=== PATIENT | male | born 1975 | race Two or more races ===

== ENCOUNTER 2017-01-02 11:01 | Emergency (ER) | payer OTHER ==
[~2017-01-02] VITALS: Ht 175.3 cm; Wt 74.8 kg
[2017-01-02] MEDS ORDERED: IBUPROFEN600 MG ORAL (12:10)
[2017-01-02 12:13] VITALS: BP 120/81
--- NOTE | 2017-01-02 12:36 | Diagnostic Imaging Report ---
Indication: left ankle pain Comparison: None Findings: 3 views of the left ankle obtained. No acute fracture, malalignment, periostitis, or osteochondral defects are identified. Soft tissues are unremarkable. Impression: No acute findings
--- NOTE | 2017-01-02 12:36 | Diagnostic Imaging Report ---
Indication: pain Findings: 3 views of the left hand were obtained. Normal alignment is demonstrated. No acute fractures, erosions, or periosteal reaction are seen. Soft tissues are unremarkable. Impression: No acute findings.
--- NOTE | 2017-01-03 06:49 | Emergency Room Report ---
History of Present Illness General Chief Complaint: Lower Extremity Injury Source: Patient Present Illness HPI 41-year-old male since ED complaining of left thumb pain left ankle pain. States that 3 days ago he had trip and fall, rolling his ankle and in the process landing on his outstretched hand. Patient presents with pain to his left ankle and his left thumb. Pain is throbbing, 7/10, nonradiating. Denies any other injuries. No other aggravating or relieving factors. Denies any other associated symptom Allergies: Coded Allergies: No Known Allergies (Unverified , 01/02/17) Patient History Past Medical History: none Past Surgical History: none Pertinent Family History: none Social History: Denies: smoking, alcohol use, drug use Immunizations: UTD Reviewed Nursing Documentation: PMH: Agreed, PSxH: Agreed Nursing Documentation-PMH Past Medical History: No Stated History Review of Systems All Other Systems: negative except mentioned in HPI Physical Exam Vital Signs Date Time Temp Pulse Resp B/P (MAP) Pulse Ox O2 Delivery O2 Flow Rate FiO2 01/02/17 11:07 98.1 67 20 120/81 99 Room Air Sp02 EP Interpretation: reviewed, normal General Appearance: no apparent distress, alert, GCS 15, non-toxic Head: normocephalic Eyes: bilateral eye normal inspection, bilateral eye PERRL ENT: normal ENT inspection Neck: normal inspection Respiratory: normal inspection Cardiovascular #1: normal inspection Gastrointestinal: normal inspection Rectal: deferred Genitourinary: no CVA tenderness Musculoskeletal: tender - L ankle, L thumb Neurologic: alert, oriented x3, responsive, motor strength/tone normal, sensory intact, speech normal Psychiatric: judgement/insight normal, memory normal, mood/affect normal, no suicidal/homicidal ideation Skin: normal inspection Lymphatic: normal inspection Procedures Splinting Splinting : Consent: Verbal Pre-Made Type: JOSE wrap Splint: thumb spica Pre-Proc Neuro Vasc Exam: normal Post-Proc Neuro Vasc Exam: normal Patient Tolerated: Well Complications: None Medical Decision Making Diagnostic Impression: Primary Impression: Ankle sprain Qualified Codes: S93.402A - Sprain of unspecified ligament of left ankle, initial encounter Additional Impression: Thumb fracture Qualified Codes: S62.515A - Nondisplaced fracture of proximal phalanx of left thumb, initial encounter for closed fracture ER Course Hospital Course 41-year-old M presents to ED complaining of L ankle and L thumb pain s/p trip and fall Differential diagnoses include: Fracture, dislocation, sprain, contusion Clinical course Patient placed on stretcher. After initial history and physical, I ordered pain medications and Xrays of L ankle, L hand Left ankle film unremarkable, left hand x-ray shows possible fracture of thumb Patient does have snuffbox tenderness as well. Placed in thumb spica splint. Jose wrap placed on left ankle. Patient defers crutches Diagnosis - ankle sprain, thumb fx Stable and discharged to home with prescription for Motrin. apply ice, keep elevated. weight bear as tolerated. Followup with PMD. Return to ED if symptoms recur or worsen Other X-Ray Diagnostic Results Other X-Ray Diagnostic Results #1: X-Ray ordered: L hand # of Views/Limited Vs Complete: 3 View Indication: Pain EP Interpretation: Yes Interpretation: no dislocation, no soft tissue swelling Impression: Other - fx L thumb Electronically Signed by: Electronically signed by Issac Montes MD Other X-Ray Diagnostic Results #2: X-Ray ordered: Left ankle # of Views/Limited Vs Complete: 3 View Indication: Pain EP Interpretation: Yes Interpretation: no dislocation, no soft tissue swelling, no fractures Impression: No acute disease Electronically Signed by: Electronically signed by Issac Montes MD Last Vital Signs Date Time Temp Pulse Resp B/P (MAP) Pulse Ox O2 Delivery O2 Flow Rate FiO2 01/02/17 12:13 98.1 74 20 120/81 99 Room Air Status: improved Disposition: HOME, SELF-CARE Condition: Stable Scripts Ibuprofen* (MOTRIN*) 600 Mg Tablet 600 MG ORAL Q8H Y for For Pain, #30 TAB 0 Refills Prov: ISSAC MONTES M.D. 01/02/17 Referrals: EDWIN SOLIS Urmen M.D. Patient Instructions: Ankle Sprain, Thumb Fracture ISSAC MONTES M.D. Jan 03, 2017 06:49
== END 2017-01-02 12:13 | disposition home or self-care (01) ==
LOC: EMR 11:25
DX: S93.402A Sprain of unspecified ligament of left ankle, initial encounter (principal); S62.502A Fracture of unspecified phalanx of left thumb, initial encounter for closed fracture; W01.0XXA Fall on same level from slipping, tripping and stumbling without subsequent striking against object, initial encounter; Y92.89 Other specified places as the place of occurrence of the external cause
CPT/HCPCS: 99284

== ENCOUNTER 2017-01-16 14:22 | Emergency (ER) | payer OTHER ==
[~2017-01-16] VITALS: Ht 175.3 cm; Wt 74.8 kg
[~2017-01-16 14:22] MED LIST: IBUPROFEN600 MG ORAL
[2017-01-16] MEDS ORDERED: Mylanta II UD 30ml ORAL ONE (14:45)
--- NOTE | 2017-01-16 14:52 | Emergency Room Report ---
History of Present Illness General Chief Complaint: Abdominal Pain Source: Patient Present Illness HPI 41YOM walk-in with 2 days RUQ abd pain Food makes pain worse, assoc with bloating "gas" pain No nausea/vomiting, fever/chills Had "blood in stool" 2 days ago but that was after drinking "vegetarian juice." Was in [place] for boat trip recently - just drank coffee - not sure if made with clean water Previous appendectomy No other surgery or other med problems Doesnt take NSAIDs Not a heavy drinker Allergies: Coded Allergies: No Known Allergies (Unverified , 01/02/17) Patient History Past Medical History: none Past Surgical History: none Pertinent Family History: none Social History: Denies: smoking, alcohol use, drug use Immunizations: UTD Reviewed Nursing Documentation: PMH: Agreed, PSxH: Agreed Nursing Documentation-PMH Past Medical History: No History, Except For Hx Cardiac Problems: No - Shingles Hx Hypertension: No Hx Pacemaker: No Hx Asthma: No Hx COPD: No Hx Diabetes: No Hx Cancer: No Hx Gastrointestinal Problems: No History Of Psychiatric Problem: No Hx Neurological Problems: No Hx Cerebrovascular Accident: No Hx Seizures: No Review of Systems All Other Systems: negative except mentioned in HPI Physical Exam Vital Signs Date Time Temp Pulse Resp B/P (MAP) Pulse Ox O2 Delivery O2 Flow Rate FiO2 01/16/17 14:35 97.5 56 16 145/75 98 Room Air Sp02 EP Interpretation: reviewed, normal General Appearance: normal inspection, well appearing, no apparent distress, alert Head: normocephalic, atraumatic ENT: normal ENT inspection, hearing grossly normal, normal voice Neck: normal inspection, full range of motion, supple, no bony tend Respiratory: normal inspection, lungs clear, normal breath sounds, no respiratory distress, no retraction, no wheezing Cardiovascular #1: regular rate, rhythm, no edema Gastrointestinal: normal inspection, normal bowel sounds, non tender, soft, no guarding, no hernia Genitourinary: no CVA tenderness Musculoskeletal: normal inspection, back normal, normal range of motion, Jed' s Sign negative Neurologic: normal inspection, alert, responsive, speech normal Psychiatric: normal inspection, judgement/insight normal, mood/affect normal Skin: normal inspection, normal color, no rash Medical Decision Making Diagnostic Impression: Primary Impression: Abdominal pain Qualified Codes: R10.11 - Right upper quadrant pain ER Course Labs: No leuks,. H&h stable. Elevated eosinophils. LFTs, lipase normal. UA normal Improved from GI cocktail Possibly travelers gastritis/illness from travel to [place] Not septic appearing Rx Cipro PMD followup as needed DC home Low suspicion for acute bacterial/surgical process requiring additional lab work , imaging, admission and/or surgical evaluation at this time given well appearing, non-focal abd on serial exam, stable vital signs, and tolerating PO. In shared decision making process with patient, understands to return to ER for worsening symptoms and to followup with PMD in reasonable amount of time, 2-3 days. Last Vital Signs Date Time Temp Pulse Resp B/P (MAP) Pulse Ox O2 Delivery O2 Flow Rate FiO2 01/16/17 14:35 97.5 56 16 145/75 98 Room Air Status: improved Disposition: HOME, SELF-CARE Scripts Ciprofloxacin Hcl* (CIPROFLOXACIN HCL*) 500 Mg Tablet 500 MG ORAL EVERY 12 HOURS for 3 Days, #6 TAB 0 Refills Prov: KM ENGLAND M.D. 01/16/17 KM ENGLAND M.D. Jan 16, 2017 14:52
[2017-01-16 15:41] LABS: BASOPHILS % (AUTO) 1.1 % (0.0-2.0); EOSINOPHILS % (AUTO) 3.4 % (0.0-3.0); MEAN CORPUSCULAR HEMOGLOBIN 34.8 PG (27.0-31.0); MEAN CORPUSCULAR HGB CONC 33.5 G/DL (32.0-36.0); MEAN CORPUSCULAR VOLUME 104 FL (80-99); NEUTROPHILS % (AUTO) 53.5 % (45.0-75.0); PLATELET COUNT 250 K/UL (150-450); RED BLOOD COUNT 4.02 M/UL (4.70-6.10); RED CELL DISTRIBUTION WIDTH 12.6 % (11.6-14.8); WHITE BLOOD COUNT 7.1 K/UL (4.8-10.8)
[2017-01-16 16:08] LABS: ALANINE AMINOTRANSFERASE 15 U/L (12-78); ALBUMIN/GLOBULIN RATIO 1.2 (1.0-2.7); ANION GAP 5 mmol/L (5-15); ASPARTATE AMINO TRANSFERASE 16 U/L (15-37); CALCIUM 9.1 MG/DL (8.5-10.1); CARBON DIOXIDE 29 MMOL/L (21-32); CHLORIDE 108 MMOL/L (98-107); GLOMERULAR FILTRATION RATE > 60 mL/min (>60); LIPASE 113 U/L (73-393); POTASSIUM 4.3 MMOL/L (3.5-5.1); SODIUM 142 MMOL/L (136-145); TOTAL PROTEIN 6.4 G/DL (6.4-8.2)
[2017-01-16] MEDS ORDERED: CIPROFLOXACIN500 M2 ORAL (17:30)
[2017-01-16 17:48] VITALS: BP 118/73
[2017-01-16 17:50] VITALS: BP 118/73
[2017-01-16 17:51] LABS: APPEARANCE,URINE CLEAR; KETONES,URINE NEGATIVE (NEGATIVE); LEUKOCYTE ESTERASE ,URINE NEGATIVE (NEGATIVE); NITRITE,URINE NEGATIVE (NEGATIVE); PH,URINE 5 (4.5-8.0); PROTEIN,URINE NEGATIVE (NEGATIVE); UROBILINOGEN,URINE NORMAL MG/DL (0.0-1.0)
== END 2017-01-16 20:15 | disposition home or self-care (01) ==
LOC: EMR 15:48
DX: R10.11 Right upper quadrant pain (principal)
CPT/HCPCS: 36415; 80053; 81003; 83690; 85025; 96374; 99284; S0028

== ENCOUNTER 2017-03-01 16:41 | Emergency (ER) | payer OTHER ==
[~2017-03-01] VITALS: Ht 172.7 cm; Wt 73.5 kg
[~2017-03-01 16:41] MED LIST changes: +CIPROFLOXACIN500 M2 ORAL
[2017-03-01 16:45] VITALS: BP 137/88
[2017-03-01] MEDS ORDERED: GABAPENTIN300 MG ORAL (16:51)
[2017-03-01 17:56] LABS: BASOPHILS % (AUTO) 0.7 % (0.0-2.0); EOSINOPHILS % (AUTO) 2.5 % (0.0-3.0); LYMPHOCYTES % (AUTO) 27.1 % (20.0-45.0); MEAN CORPUSCULAR HEMOGLOBIN 35.1 PG (27.0-31.0); MEAN CORPUSCULAR HGB CONC 33.9 G/DL (32.0-36.0); MEAN CORPUSCULAR VOLUME 104 FL (80-99); MEAN PLATELET VOLUME 7.1 FL (6.5-10.1); MONOCYTES % (AUTO) 8.7 % (1.0-10.0); NEUTROPHILS % (AUTO) 61.1 % (45.0-75.0); PLATELET COUNT 295 K/UL (150-450); RED BLOOD COUNT 4.43 M/UL (4.70-6.10); RED CELL DISTRIBUTION WIDTH 12.2 % (11.6-14.8); WHITE BLOOD COUNT 8.3 K/UL (4.8-10.8)
[2017-03-01 18:04] LABS: ANION GAP 5 mmol/L (5-15); CALCIUM 8.9 MG/DL (8.5-10.1); CARBON DIOXIDE 30 MMOL/L (21-32); CHLORIDE 105 MMOL/L (98-107); CREATININE 1.1 MG/DL (0.55-1.30); GLOMERULAR FILTRATION RATE > 60 mL/min (>60); POTASSIUM 4.3 MMOL/L (3.5-5.1); SODIUM 140 MMOL/L (136-145)
[2017-03-01 18:06] LABS: PROTHROMBIN TIME 10.3 SEC (9.30-11.50)
[2017-03-01 18:08] LABS: ALANINE AMINOTRANSFERASE 15 U/L (12-78); ALBUMIN/GLOBULIN RATIO 1.1 (1.0-2.7); ASPARTATE AMINO TRANSFERASE 17 U/L (15-37); LIPASE 144 U/L (73-393); TOTAL PROTEIN 7.2 G/DL (6.4-8.2)
[2017-03-01] MEDS ORDERED: TRAMADOL HCL50 MG ORAL (18:56)
[2017-03-01] MEDS ORDERED: OMEPRAZOLE20 M2 ORAL (18:56)
[2017-03-01 19:05] VITALS: BP 133/76
[2017-03-01 19:06] LABS: APPEARANCE,URINE CLEAR; KETONES,URINE NEGATIVE (NEGATIVE); LEUKOCYTE ESTERASE ,URINE 2+ (NEGATIVE); NITRITE,URINE NEGATIVE (NEGATIVE); PH,URINE 5 (4.5-8.0); PROTEIN,URINE NEGATIVE (NEGATIVE); UROBILINOGEN,URINE NORMAL MG/DL (0.0-1.0)
[2017-03-01 19:14] VITALS: BP 133/76
[2017-03-01 19:20] LABS: BACTERIA,URINE FEW /HPF
--- NOTE | 2017-03-01 21:35 | Emergency Room Report ---
History of Present Illness General Chief Complaint: Pain Source: Patient (ROBERT CHENG) Present Illness HPI The patient is a 41-year-old male presenting for abdominal and flank pain. He states that he had pain to the right side approximately 2 months prior. He was seen in this emergency department around that time and had labs done which were unremarkable. The patient also states that he had shingles to the area which resolved. Pain is a 5 at of 10 dull ache and does not radiate. Worse with touch. He was seen by his primary doctor one week prior and had ultrasound done. This was unremarkable per the patient. The pain has continued which now brings him to the emergency department. He denies other symptoms including nausea, vomiting, fever, chills, diarrhea, constipation, dysuria, hematuria (ROBERT CHENG) Allergies: Coded Allergies: No Known Allergies (Unverified , 01/02/17) Patient History Past Medical History: see triage record Pertinent Family History: none Reviewed Nursing Documentation: PMH: Agreed, PSxH: Agreed (ROBERT CHENG) Nursing Documentation-PMH Hx Hypertension: No Hx Pacemaker: No Hx Asthma: No Hx COPD: No Hx Diabetes: No Hx Cancer: No Hx Neurological Problems: No Hx Cerebrovascular Accident: No Hx Seizures: No (ROBERT CHENG) Review of Systems All Other Systems: negative except mentioned in HPI (ROBERT CHENG) Physical Exam Vital Signs Date Time Temp Pulse Resp B/P (MAP) Pulse Ox O2 Delivery O2 Flow Rate FiO2 03/01/17 16:45 98.2 70 16 137/88 96 Room Air Sp02 EP Interpretation: reviewed, normal General Appearance: no apparent distress, alert, GCS 15, non-toxic Head: normocephalic, atraumatic Eyes: bilateral eye normal inspection, bilateral eye PERRL ENT: hearing grossly normal, normal pharynx, no angioedema, normal voice Neck: full range of motion, supple/symm/no masses Respiratory: chest non-tender, lungs clear, normal breath sounds, speaking full sentences Cardiovascular #1: regular rate, rhythm, no edema Gastrointestinal: normal inspection, normal bowel sounds, no mass, non- distended, no guarding, tenderness - RUQ to soft touch Rectal: deferred Genitourinary: normal inspection, CVA tenderness (R) Musculoskeletal: back normal, gait/station normal, normal range of motion, non- tender Neurologic: alert, oriented x3, responsive, motor strength/tone normal, sensory intact, speech normal Psychiatric: judgement/insight normal, memory normal, mood/affect normal, no suicidal/homicidal ideation Skin: normal color, no rash, warm/dry, well hydrated (ROBERT CHENG) Medical Decision Making PA Attestation Dr. Hopper is my supervising physician. Patient management was discussed with my supervising physician (ROBERT CHENG) Diagnostic Impression: Primary Impression: Abdominal pain Qualified Codes: R10.9 - Unspecified abdominal pain ER Course The patient is a 41-year-old male presenting for abdominal and flank pain. Differential diagnoses considered include but not limited to kidney stone, pyelonephritis, gastritis, pancreatitis, appendicitis, UTI PE: vitals WNL. NAD Abdomen is soft. Normal bowel sounds. Nondistended. There is mild tenderness to palpation over the right upper quadrant with soft touch. Deep palpation there is no tenderness. There is right-sided CVA tenderness Otherwise unremarkable Labs: Blood work is unremarkable. No leukocytosis. Liver enzymes within normal limits. Urinalysis shows signs of infection with bacteria and white blood cells CT unremarkable The patient is discharged home with pain medication and antibiotics. He will followup with primary doctor. ER precautions given Laboratory Tests Test 03/01/17 17:40 03/01/17 18:20 White Blood Count 8.3 K/UL (4.8-10.8) Red Blood Count 4.43 M/UL (4.70-6.10) L Hemoglobin 15.5 G/DL (14.2-18.0) Hematocrit 45.9 % (42.0-52.0) Mean Corpuscular Volume 104 FL (80-99) H Mean Corpuscular Hemoglobin 35.1 PG (27.0-31.0) H Mean Corpuscular Hemoglobin Concent 33.9 G/DL (32.0-36.0) Red Cell Distribution Width 12.2 % (11.6-14.8) Platelet Count 295 K/UL (150-450) Mean Platelet Volume 7.1 FL (6.5-10.1) Neutrophils (%) (Auto) 61.1 % (45.0-75.0) Lymphocytes (%) (Auto) 27.1 % (20.0-45.0) Monocytes (%) (Auto) 8.7 % (1.0-10.0) Eosinophils (%) (Auto) 2.5 % (0.0-3.0) Basophils (%) (Auto) 0.7 % (0.0-2.0) Prothrombin Time 10.3 SEC (9.30-11.50) Prothrombin Time INR 1.0 (0.9-1.1) PTT 28 SEC (23-33) Sodium Level 140 MMOL/L (136-145) Potassium Level 4.3 MMOL/L (3.5-5.1) Chloride Level 105 MMOL/L (98-107) Carbon Dioxide Level 30 MMOL/L (21-32) Anion Gap 5 mmol/L (5-15) Blood Urea Nitrogen 18 mg/dL (7-18) Creatinine 1.1 MG/DL (0.55-1.30) Estimate Glomerular Filtration Rate > 60 mL/min (>60) Glucose Level 86 MG/DL (74-106) Calcium Level 8.9 MG/DL (8.5-10.1) Total Bilirubin 0.3 MG/DL (0.2-1.0) Aspartate Amino Transferase (AST) 17 U/L (15-37) Alanine Aminotransferase (ALT) 15 U/L (12-78) Alkaline Phosphatase 76 U/L (46-116) Total Protein 7.2 G/DL (6.4-8.2) Albumin 3.7 G/DL (3.4-5.0) Globulin 3.5 g/dL Albumin/Globulin Ratio 1.1 (1.0-2.7) Lipase 144 U/L (73-393) Urine Color Pale yellow Urine Appearance Clear Urine pH 5 (4.5-8.0) Urine Specific [place] 1.015 (1.005-1.035) Urine Protein Negative (NEGATIVE) Urine Glucose (UA) Negative (NEGATIVE) Urine Ketones Negative (NEGATIVE) Urine Occult Blood Negative (NEGATIVE) Urine Nitrite Negative (NEGATIVE) Urine Bilirubin Negative (NEGATIVE) Urine Urobilinogen Normal MG/DL (0.0-1.0) Urine Leukocyte Esterase 2+ (NEGATIVE) H Urine RBC 2-4 /HPF (0 - 0) H Urine WBC 10-15 /HPF (0 - 0) H Urine Squamous Epithelial Cells None /LPF (NONE/OCC) Urine Bacteria Few /HPF (NONE) Lab Results Impression Blood work is unremarkable. No leukocytosis. Liver enzymes within normal limits. Urinalysis shows signs of infection with bacteria and white blood cells (ROBERT CHENG P.A.) CT/MRI/US Diagnostic Results CT/MRI/US Diagnostic Results : Imaging Test Ordered: CT abd/pelvis Impression unremarkable (ROBERT CHENG.Etienne) Last Vital Signs Date Time Temp Pulse Resp B/P (MAP) Pulse Ox O2 Delivery O2 Flow Rate FiO2 03/01/17 19:14 97.0 61 18 133/76 98 Room Air Status: improved (ROBERT CHENG.AMarlene) Disposition: HOME, SELF-CARE Condition: Improved Physician Consult: Patient called in to have prescription sent to 2 different pharmacy (MANNY GAMEZ D.O.) Scripts Cephalexin* (KEFLEX*) 500 Mg Capsule 500 MG ORAL EVERY 12 HOURS, #14 CAP 0 Refills Prov: ROBERT CHENG P.A. 03/01/17 Omeprazole (OMEPRAZOLE) 20 Mg Capsule.dr 20 MG ORAL DAILY, #30 CAP Prov: TERZIANROBERT P.A. 03/01/17 Tramadol Hcl* (ULTRAM*) 50 Mg Tablet 50 MG ORAL Q6H Y for For Pain, #12 TAB 0 Refills Prov: TERZIANROBERT P.A. 03/01/17 Patient Instructions: Abdominal Pain, Adult Additional Instructions: I discussed my findings with the patient. All questions and concerns have been answered. Treatment and medication compliance have been addressed. I advised the patient that they need to follow up with GI doctor as discussed. Return to ED if symptoms worsen, new symptoms arise, or if needed for any reason. Patient verbalized understanding of discharge instructions. ROBERT CHENG Mar 01, 2017 21:35 MANNY GAMEZ D.O. Mar 02, 2017 09:49
[2017-03-01] MEDS ORDERED: CEPHALEXIN500 MG ORAL (21:37)
--- NOTE | 2017-03-02 08:31 | Diagnostic Imaging Report ---
Indication: PAIN Technique: Spiral acquisitions obtained through the abdomen and pelvis. No oral contrast utilized, per emergency room physician request No IV contrast utilized, per emergency room physician request.. Multiplanar reconstructions were generated. Total dose length product 621 mGycm. CTDIvol(s) 11 mGy. Dose reduction achieved using automated exposure control Comparison: None Findings: The appendix is only equivocally visualized, but there are no findings to suggest acute appendicitis. No evidence of diverticulosis or diverticulitis. No small bowel distention. No free or loculated intraperitoneal air or fluid. The stomach is distended. The distal esophagus and duodenum are unremarkable. Lack of IV contrast limits assessment of solid organs. The liver, gallbladder, bile ducts, pancreas, spleen, adrenals are unremarkable. The left kidney demonstrates a 2 mm upper pole calculus. No right renal calculi. No hydronephrosis or hydroureter or ureteral calculi demonstrated. The included lung bases are clear. The bones are unremarkable. Impression: Distended stomach, nonspecific. No definite obstructive lesion demonstrated. Nonetheless, possibly a straight outlet obstruction should be considered. No acute process otherwise Nonobstructive left upper pole intrarenal calculus. This agrees with the preliminary interpretation provided overnight by [employer] teleradiology service. The CT scanner at [facility] is accredited by the [employer] and the scans are performed using protocols designed to limit radiation exposure to as low as reasonably achievable to attain images of sufficient resolution adequate for diagnostic evaluation.
== END 2017-03-01 19:14 | disposition home or self-care (01) ==
LOC: EMR 17:17
DX: R10.9 Unspecified abdominal pain (principal); N20.0 Calculus of kidney
CPT/HCPCS: 36415; 74176; 80053; 81003; 83690; 85025; 85610; 85730; 87086; 96360; 99284

== ENCOUNTER 2017-07-18 12:06 | Emergency (ER) | payer OTHER ==
[~2017-07-18] VITALS: Ht 177.8 cm; Wt 79.4 kg
[~2017-07-18 12:06] MED LIST changes: +CEPHALEXIN500 MG ORAL; +GABAPENTIN300 MG ORAL; +OMEPRAZOLE20 M2 ORAL; +TRAMADOL HCL50 MG ORAL
[2017-07-18] MEDS ORDERED: Acetaminophen 500mg (ES) tab ORAL ONE ×2 (12:30→12:38)
--- NOTE | 2017-07-18 12:39 | Emergency Room Report ---
History of Present Illness General Chief Complaint: Lower Extremity Injury Source: Patient Present Illness HPI 41 yo male patient presents to ER complaining of 1 week hx of left thumb and knee pain. Reports was playing soccer one week ago and fell onto left hand and left knee. Reports able to ambulate since that time. Reports pain with ambulation. Reports right hand dominant. Reports hx of fracture of left thumb. Denies hitting head. Denies loss of consciousness. Reports icing hand and knee. Denies fever, chest pain, SOB. Allergies: Coded Allergies: No Known Allergies (Unverified , 01/02/17) Patient History Past Medical History: see triage record Reviewed Nursing Documentation: PMH: Agreed; PSxH: Agreed Nursing Documentation-PMH Hx Hypertension: No Hx Pacemaker: No Hx Asthma: No Hx COPD: No Hx Diabetes: No Hx Cancer: No Hx Neurological Problems: No Hx Cerebrovascular Accident: No Hx Seizures: No Review of Systems All Other Systems: negative except mentioned in HPI Physical Exam Vital Signs Date Time Temp Pulse Resp B/P (MAP) Pulse Ox O2 Delivery O2 Flow Rate FiO2 07/18/17 12:10 98.2 66 17 127/79 95 Room Air 98.2 Sp02 EP Interpretation: reviewed, normal General Appearance: well appearing, no apparent distress, alert, GCS 15, non- toxic Head: normocephalic, atraumatic Eyes: bilateral eye normal inspection, bilateral eye PERRL ENT: hearing grossly normal, normal pharynx, no angioedema, normal voice, uvula midline, moist mucus membranes Neck: full range of motion Respiratory: lungs clear, normal breath sounds, no rhonchi, no respiratory distress, no accessory muscle use, no wheezing, speaking full sentences Cardiovascular #1: regular rate, rhythm, no edema Cardiovascular #2: 2+ radial (R), 2+ radial (L), 2+ dorsalis pedis (R), 2+ dorsalis pedis (L) Musculoskeletal: back normal, digits/nails normal, gait/station normal, normal range of motion, non-tender, no calf tenderness, swelling - medial and distal to left knee, no erythema, no TTP, no ecchymosis, other - swellling of left phalanx at distal joint; negative ardha, negative Hawk, negative laxity wiht varus and valgus stress, tender - snuffbox tenderness Neurologic: alert, oriented x3, responsive, motor strength/tone normal, sensory intact Psychiatric: mood/affect normal Skin: no rash Lymphatic: no adenopathy Medical Decision Making PA Attestation Dr. Gee is my supervising Physician whom patient management has been discussed with. Diagnostic Impression: Primary Impression: Wrist pain Additional Impressions: Knee sprain Thumb injury ER Course Pt. presents to the ED c/o left thumb and knee pain. Ddx considered but are not limited to fracture, sprain, strain, contusion, dislocation. No erythema, no warmth to touch, no fever, nontoxic appearing, low suspicion for septic joint. Vital signs: are WNL, pt. is afebrile Ordered X-ray and pain medication. ER COURSE An X-ray of the left wrist and hand was ordered, results show no scaphoid fracture, possible distal phalanx fracture per the preliminary reading. An X-ray of the left knee was ordered, results show no acute fracture, per the preliminary reading. Due to snuffbox tenderness, will splint wrist in thumb spica due to possibility of occult scaphoid fracture. Left thumb will be splinted for possible fracture with thumb spica. Patient instructed to followup with ortho. Discuss results with patient. Need repeat imaging in 1-2 weeks to rule out scaphoid fracture. Pain Medication provided in ED. Splint was applied to the left wrist was checked afterwards by me showing good alignment and support with distal neurovascular functioning intact. HARLEY wrap applied to left knee. Patient declined crutches. Patient instructed on RICE method: rest, ice, compression, elevation. Informed patient of x-ray results. Needs repeat imaging in 1 week. Followup with primary care provider and request referral to ortho. Request MRI imaging from primary care provider. DISCHARGE: -Rx provided for Tylenol for pain symptoms. At this time pt. is stable for d/c to home. Patient is resting comfortably, in no acute distress, nontoxic appearing, talking without difficulty. Will provide printed patient care instructions, and any necessary prescriptions. Patient instructed to follow with primary care provider in 3 - 5 days and to request further orthopedic follow-up. Care plan and follow up instructions have been discussed with the patient prior to discharge. Take medications as directed. Patient questions asked and answered. Patient reports understanding and agreement to treatment plan. ER precautions given, patient instructed to return to ER immediately for any new or worsening of symptoms. Other X-Ray Diagnostic Results Other X-Ray Diagnostic Results #1: X-Ray ordered: left hand # of Views/Limited Vs Complete: 3 View Indication: Pain EP Interpretation: Yes PA Xray: Interpretation reviewed, by supervising MD, and agrees with findings. Interpretation: no dislocation, no soft tissue swelling, other - nondisplaced distal phalanx fracture Impression: Other PA Scribe Text Reji Da Silva PA-C Other X-Ray Diagnostic Results #2: X-Ray ordered: left wrist # of Views/Limited Vs Complete: 3 View Indication: Pain EP Interpretation: Yes PA Xray: Interpretation reviewed, by supervising MD, and agrees with findings. Interpretation: no dislocation, no soft tissue swelling, no fractures Impression: No acute disease PA Scribe Text Reji Da Silva PA-C Other X-Ray Diagnostic Results #3: X-Ray ordered: left knee # of Views/Limited Vs Complete: 3 View Indication: Swelling EP Interpretation: Yes PA Xray: Interpretation reviewed, by supervising MD, and agrees with findings. Interpretation: no dislocation, no soft tissue swelling, no fractures Impression: No acute disease PA Scribe Text Reji Da Silva PA-C Last Vital Signs Date Time Temp Pulse Resp B/P (MAP) Pulse Ox O2 Delivery O2 Flow Rate FiO2 07/18/17 12:10 98.2 66 17 127/79 95 Room Air 98.2 Disposition: HOME, SELF-CARE Condition: Stable Scripts Acetaminophen* (TYLENOL EXTRA STRENGTH*) 500 Mg Tablet 500 MG ORAL Q8H PRN for Prn Headache/Temp > 101, #30 TAB 0 Refills Prov: Lucas Da Silva 07/18/17 Patient Instructions: Knee Pain, [id number], Scaphoid Fracture, Wrist, Thumb Fracture Additional Instructions: Patient instructed to follow up with primary care provider and discuss further referral to orthopedics. Patient instructed on RICE method: rest, ice, compression, elevation. Patient instructed to WBAT of knee and NWB of wrist. Take medications as directed. Patient questions asked and answered. ER precautions given, patient instructed to return to ER immediately for any new or worsening of symptoms. Lucas Da Silva Jul 18, 2017 12:39
[2017-07-18] MEDS ORDERED: TYLENOL EXTRA500 MG ORAL (13:35)
[2017-07-18 14:30] VITALS: BP 127/79
--- NOTE | 2017-07-18 15:04 | Diagnostic Imaging Report ---
Indication: Pain Technique: 3 views left hand Comparison: none Findings: No acute fractures. No dislocations. The joint spaces are preserved. Impression: Negative
--- NOTE | 2017-07-18 15:05 | Diagnostic Imaging Report ---
Clinical Indication:Pain Technique: 3 views of the left wrist Comparison: None Findings: No acute fractures. No dislocations. The joint spaces are preserved Impression: Negative
--- NOTE | 2017-07-18 15:06 | Diagnostic Imaging Report ---
Indications: Knee pain Technique: Three views of the knee Comparison: None Findings: No acute fractures. No dislocations. Joint spaces are preserved. No radiopaque foreign body. Normal mineralization. No suprapatellar effusion Impression: No acute process
== END 2017-07-18 14:30 | disposition home or self-care (01) ==
LOC: EMR 13:32
DX: S69.92XA Unspecified injury of left wrist, hand and finger(s), initial encounter (principal); S83.92XA Sprain of unspecified site of left knee, initial encounter; W19.XXXA Unspecified fall, initial encounter; Y93.66 Activity, soccer; Y92.9 Unspecified place or not applicable
CPT/HCPCS: 99284